=== PATIENT | male | born 1965 | race Caucasian/White ===

== ENCOUNTER 2020-05-31 02:48 | Emergency (ER) | payer MEDICAID ==
[~2020-05-31] VITALS: Ht 182.9 cm; Wt 81.6 kg
[2020-05-31 02:51] VITALS: BP 129/75
--- NOTE | 2020-05-31 02:51 | NUR ---
TO BED AMBULATORY
--- NOTE | 2020-05-31 03:00 | NUR ---
COVERING PRIMARY RN. SEE COMPLETE ASSESSMENT.
[2020-05-31] MEDS ORDERED: HYDROcodone/APAP 5/325 MG 1 TAB TAB PO ONE (03:10)
--- NOTE | 2020-05-31 03:15 | NUR ---
54 YO M BIB SELF FOR C/O R SHOULDER PAIN AND SWELLING TO R HAND. PT DENIES FEVER OR CHILLS. PT STATES HE WAS MOVING X1 WEEK AGO AND HAD A CRATE HIT HIS SHOULDER. PT ALSO WOKE UP THIS AM AND STATED HE HAD R HAND SWELLING. PT HAS LIMITED ROM TO SHOULDER AND HAND. FACIAL GRIMACING NOTED WHEN PRONATING HAND. SWELLING TO R WRIST TO R HAND NOTED. REDNESS AND WARMTH NOTED TO HAND. PT DENIES CP/ SOB @ THIS TIME. LUNGS CLEAR EVEN UNLABORED. AVELINA LOCKED IN LOWEST POSITION. WILL CONTINUE TO OBSERVE.
[2020-05-31 03:59] LABS: BASOPHILS # (AUTO) 0.1 K/uL (0.00-0.22); BASOPHILS % (AUTO) 0.9 % (0.0-2.0); EOSINOPHILS % (AUTO) 0.5 % (0.0-4.0); HEMATOCRIT 44.7 % (36-52); HEMOGLOBIN 14.8 g/dL (12.0-18.0); LYMPHOCYTES # (AUTO) 2.3 K/uL (2.0-11.5); LYMPHOCYTES % (AUTO) 25.3 % (20.5-51.1); MEAN CORPUSCULAR HEMOGLOBIN 29 pg (27-31); MEAN CORPUSCULAR HGB CONC 33 g/dL (33-37); MEAN CORPUSCULAR VOLUME 86.6 fL (80-94); MONOCYTES # (AUTO) 0.7 K/uL (0.8-1.0); MONOCYTES % (AUTO) 7.2 % (1.7-9.3); NEUTROPHILS # (AUTO) 6.1 K/uL (1.8-7.7); NEUTROPHILS % (AUTO) 66.1 % (42.2-75.2); PLATELET COUNT (AUTO) 262 K/uL (140-450); RED BLOOD CELL COUNT(AUTO) 5.17 MIL/uL (4.20-6.10); WHITE BLOOD COUNT (AUTO) 9.2 K/uL (4.8-10.8)
[2020-05-31 04:09] LABS: ANION GAP 13.5 (8-16); CARBON DIOXIDE 25.7 mmol/L (21-32); CREATININE 0.9 mg/dL (0.6-1.3); POTASSIUM 4.2 mmol/L (3.5-5.1)
[2020-05-31] MEDS ORDERED: cephALEXin 500 MG CAP PO SCH (04:35)
[2020-05-31] MEDS ORDERED: CEPH500C16 PO (04:35)
[2020-05-31] MEDS ORDERED: IBUP-2809 PO (04:35)
[2020-05-31] MEDS ORDERED: SULFAMETH/TRIMETH DS 800/160MG 1 TAB PO SCH (04:35)
[2020-05-31] MEDS ORDERED: SULF-58 PO (04:35)
[2020-05-31 05:24] VITALS: BP 129/75
--- NOTE | 2020-05-31 05:25 | NUR ---
Patient discharged with v/s stable. Written and verbal after care instructions given and explained. Patient alert, oriented and verbalized understanding of instructions. Ambulatory with steady gait. All questions addressed prior to discharge. ID band removed. Patient advised to follow up with PMD. Rx of IBUPROFEN, BACTRIM, AND KEFLEX given. Patient educated on indication of medication including possible reaction and side effects. Opportunity to ask questions provided and answered.
== END 2020-05-31 05:25 | disposition home or self-care (01) ==
LOC: MED 02:48
DX: S49.91XD Unspecified injury of right shoulder and upper arm, subsequent encounter (principal); L03.113 Cellulitis of right upper limb; W17.89XD Other fall from one level to another, subsequent encounter
CPT/HCPCS: 36415; 73030; 73130; 80048; 85025; 87040; 99284